=== PATIENT | male | born 1980 | race Caucasian/White ===

== ENCOUNTER → 2022-08-27 | Outpatient (CLI) | payer OTHER | LOC: COL.RAD 07:29 | DX: Z12.11 Encounter for screening for malignant neoplasm of colon (principal); K21.9 Gastro-esophageal reflux disease without esophagitis; D12.6 Benign neoplasm of colon, unspecified | CPT/HCPCS: A9541 ==

== ENCOUNTER 2022-09-12 07:40 | Day surgery (SDC) | payer OTHER ==
[~2022-09-12] VITALS: Ht 182.9 cm; Wt 116.8 kg
[2022-09-12] MEDS ORDERED: WELLBUTRIN XL150 MG PO (08:55)
[2022-09-12] MEDS ORDERED: BUSPAR10 MG (08:56)
[2022-09-12] MEDS ORDERED: PERIACTIN 4MG TA4 MG PO (08:57)
[2022-09-12] MEDS ORDERED: NEURONTIN300 MG/CAP (08:57)
[2022-09-12] MEDS ORDERED: MOBIC15 MG (08:58)
[2022-09-12] MEDS ORDERED: PROTONIX 40MG T40 MG PO (08:58)
[2022-09-12] MEDS ORDERED: VIAGRA 25MG TAB25 MG PO (08:59)
[2022-09-12] MEDS ORDERED: MASON NATURAL2000 IU PO (09:00)
[2022-09-12 10:00] VITALS: BP 127/89; PULSE 86; TEMP 97
--- NOTE | 2022-09-12 10:00 | NUR ---
1000- PATIENT RETURNS TO [facility] [place] CART. PT AWAKE AND ALERT. RESPIRATIONS UNLABORED. AMBULATED TO RECLINER CHAIR WITH 2:1 SBA. PT DENIES NAUSEA OR ABDOMINAL PAIN. HOOKED UP TO MONITOR AND VS OBTAINED. CALL LIGHT AT SIDE. FRIEND/RIDE WAS CALLED AND NOTIFIED THAT THE PT WAS DONE PER PT REQUEST. 1008- PATIENT TOLERATING COKE AND WARM MUFFIN WITHOUT NAUSEA OR DIFFICULTY SWALLOWING. 1030- D/C INSTRUCTIONS REVIEWED WITH PATIENT. PT VERBALIZED UNDERSTANDING AND A COPY OF INSTRUCTIONS PROVIDED IN D/C FOLDER. 1038- PATIENT DRESSES SELF. 1052- DR. LOPEZ IN ROOM SPEAKING WITH PATIENT. 1111- PATIENT DISCHARGED FROM UNIT VIA W/C TO A PERSONAL VEHICLE. PT LEFT HOSPITAL IN STABLE CONDITION.
[2022-09-12 10:15] VITALS: BP 129/89; PULSE 84
[2022-09-12 10:30] VITALS: BP 119/97; PULSE 83
[2022-09-12 10:45] VITALS: BP 130/89; PULSE 84
[2022-09-12 11:00] VITALS: BP 141/88; PULSE 83
[2022-09-12 12:54] VITALS: BP 138/105; PULSE 102; TEMP 97.5
== END 2022-09-12 11:11 | disposition home or self-care (01) ==
LOC: SDCO 07:40
DX: Z12.11 Encounter for screening for malignant neoplasm of colon (principal); D12.3 Benign neoplasm of transverse colon; K57.30 Diverticulosis of large intestine without perforation or abscess without bleeding; K64.0 First degree hemorrhoids; K21.9 Gastro-esophageal reflux disease without esophagitis; K44.9 Diaphragmatic hernia without obstruction or gangrene; K29.30 Chronic superficial gastritis without bleeding; Q40.2 Other specified congenital malformations of stomach; G47.33 Obstructive sleep apnea (adult) (pediatric); Z79.899 Other long term (current) drug therapy; Z99.81 Dependence on supplemental oxygen
CPT/HCPCS: J2704

== ENCOUNTER 2022-09-25 12:52 | Emergency (ER) | payer OTHER ==
[~2022-09-25] VITALS: Ht 182.9 cm; Wt 120.5 kg
[~2022-09-25 12:52] MED LIST: BUSPAR10 MG; MASON NATURAL2000 IU PO; MOBIC15 MG; NEURONTIN300 MG/CAP; PERIACTIN 4MG TA4 MG PO; PROTONIX 40MG T40 MG PO; VIAGRA 25MG TAB25 MG PO; WELLBUTRIN XL150 MG PO
[2022-09-25 13:02] VITALS: TEMP 98.5
[2022-09-25 13:30] LABS: BASO # 0.1 K/mm3 (0.0-0.2); BASO % 0.7 % (0.0-2.0); EOS # 0.2 K/mm3 (0.0-0.7); EOS % 1.8 % (0.0-4.0); GRAN # 9.6 K/mm3 (1.4-6.5); HEMATOCRIT 51.3 % (42.0-52.0); HEMOGLOBIN 17.7 g/dl (13.5-18.0); LYMPH # 1.5 K/mm3 (1.2-3.4); LYMPH % 12.1 % (20.0-51.0); MEAN CELL VOLUME 92 fl (80.0-100.0); MEAN CORPUSCULAR HEMOGLOBIN 32 pg (27-31); MEAN CORPUSCULAR HGB CONC 35 g/dl (33.0-37.0); MEAN PLATELET VOLUME 10.6 fl (7.4-10.4); MONO # 1.1 K/mm3 (0.1-0.6); MONO % 8.9 % (1.7-9.3); PLATELET COUNT 359 K/mm3 (130-400); RED BLOOD COUNT 5.58 M/mm3 (4.20-5.60); REDCELL DISTRIBUTION WIDTH-CV 13.5 % (11.5-14.5)
[2022-09-25 13:35] LABS: INR 1.2 (0.8-3.0); PROTHROMBIN TIME 13.8 SECONDS (9.7-12.8)
[2022-09-25 13:57] VITALS: PULSE 97
[2022-09-25 14:02] LABS: ALBUMIN 4.2 gm/dL (3.5-5.0); BILIRUBIN,TOTAL 0.6 mg/dL (0.2-1.2); CREATININE, serum 0.91 mg/dL (0.72-1.25); POTASSIUM 3.8 mmol/L (3.5-4.5)
[2022-09-25] MEDS ORDERED: ZOFRAN ODT4 MG PO (16:16)
[2022-09-25 16:28] VITALS: BP 143/94
== END 2022-09-25 13:46 | disposition home or self-care (01) ==
LOC: COL.ER 12:52
PROVIDERS: Physician Assistant
DX: K29.70 Gastritis, unspecified, without bleeding (principal); K21.9 Gastro-esophageal reflux disease without esophagitis; K44.9 Diaphragmatic hernia without obstruction or gangrene; Z79.899 Other long term (current) drug therapy; Z28.310 Unvaccinated for COVID-19
CPT/HCPCS: C9113; J7030; Q9967

== ENCOUNTER → 2023-03-05 | Outpatient (CLI) | payer OTHER ==
[~2023-03-05] MED LIST changes: +BENTYL 10MG10 MG/CAP PO; +MOTRIN 600600 MG/TAB PO; +NEURONTIN600 MG/TAB PO; +ROXICODONE 55 MG/TAB PO; +WELLBUTRIN XL300 M1 PO; +ZITHROMAX 250M250 MG PO; +ZOFRAN ODT4 MG PO
== END ==
LOC: COL.RAD 12:44
DX: Z02.71 Encounter for disability determination (principal); M25.562 Pain in left knee; M25.512 Pain in left shoulder

== ENCOUNTER → 2023-07-10 | Outpatient (CLI) | payer OTHER ==
[~2023-07-10] MED LIST changes: +COMPLETE MULTI1 TAB PO
== END ==
LOC: COL.RAD 08:32
DX: K44.9 Diaphragmatic hernia without obstruction or gangrene (principal); K21.9 Gastro-esophageal reflux disease without esophagitis; K22.10 Ulcer of esophagus without bleeding; Z98.890 Other specified postprocedural states

== ENCOUNTER 2023-09-17 07:21 | Day surgery (SDC) | payer OTHER ==
[~2023-09-17] VITALS: Ht 182.9 cm; Wt 109.7 kg
[~2023-09-17 07:21] MED LIST changes: +LR 1,000 ML IV SCH; +NEURONTIN300 MG/CAP PO; -NEURONTIN600 MG/TAB PO; +Ondansetron 4 MG/2 ML VIAL IV PRN
--- NOTE | 2023-09-17 08:02 | NUR ---
Pt arrived with significant other and escorted to [facility], VSS and WNL, RR even and unlabored; reviewed and signed consents, reviewed history/pharm/meds/allergies; IV to RFA and LR hanging, to await procedure.
[2023-09-17] MEDS ORDERED: WELLBUTRIN SR150 M1 PO (08:05)
[2023-09-17] MEDS ORDERED: PROAIR HFA0.09 MG/AC IH (08:09)
[2023-09-17] MEDS ORDERED: LAMICTAL200 MG PO (08:10)
[2023-09-17] MEDS ORDERED: SINEQUAN75 MG PO (08:10)
[2023-09-17] MEDS ORDERED: ZYRTEC10MGSGL PO (08:11)
[2023-09-17] MEDS ORDERED: REGLAN 10MG10 MG/TAB PO (08:11)
[2023-09-17 08:12] VITALS: BP 151/91; PULSE 90; TEMP 97.5
[2023-09-17] MEDS ORDERED: Lidocaine PF 2% (20 MG/ML) 5 ML VIAL ONE (08:53)
[2023-09-17] MEDS ORDERED: Glycopyrrolate 0.2 MG/ML 1 ML VIAL ONE (08:53)
[2023-09-17 09:30] VITALS: BP 147/91; PULSE 80; TEMP 97.1
[2023-09-17 09:45] VITALS: BP 140/92; PULSE 86
--- NOTE | 2023-09-17 09:52 | NUR ---
0915- PATIENT RETURNS TO [facility] VIA CART. PT AWAKE AND ALERT. RESPIRATIONS UNLABORED. AMBULATED TO RECLINER CHAIR WITH 2:1 SBA. PT DENIES NAUSEA OR ABDOMINAL PAIN. HOOKED UP TO MONITOR AND VS OBTAINED. CALL LIGHT AT SIDE. 0923- PATIENT TOLERATING JUICE AND MUFFIN WITHOUT NAUSEA OR DIFFICULTY SWALLOWING. 0927- DR. LOPEZ IN ROOM SPEAKING WITH PATIENT. 0943- D/C INSTRUCTIONS REVIEWED WITH PATIENT. PT VERBALIZED UNDERSTANDING AND A COPY OF INSTRUCTIONS PROVIDED IN D/C FOLDER. 0949- PATIENT DRESSES SELF. 0952- PATIENT DISCHARGED FROM UNIT VIA W/C TO A PERSONAL VEHICLE. PT LEFT HOSPITAL IN STABLE CONDITION.
== END 2023-09-17 09:52 | disposition home or self-care (01) ==
LOC: SDCO 07:21
DX: K21.00 Gastro-esophageal reflux disease with esophagitis, without bleeding (principal); K44.9 Diaphragmatic hernia without obstruction or gangrene; R11.10 Vomiting, unspecified; R68.81 Early satiety; G47.33 Obstructive sleep apnea (adult) (pediatric); Z79.899 Other long term (current) drug therapy; Z98.84 Bariatric surgery status; Z98.890 Other specified postprocedural states
CPT/HCPCS: J2704; J7120